=== PATIENT | female | born 2000 | race Two or more races ===

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

== ENCOUNTER 2022-02-07 15:53 | Emergency (ER) | payer BC ==
[~2022-02-07] VITALS: Ht 152.4 cm; Wt 75.3 kg
[2022-02-07 16:08] VITALS: BP 127/90
--- NOTE | 2022-02-07 16:30 | NUR ---
Called to room pt- NO response
--- NOTE | 2022-02-07 16:41 | NUR ---
called to room pt- NO response.
--- NOTE | 2022-02-07 16:45 | NUR ---
Called to room pt- NO response
== END 2022-02-07 19:00 | disposition left against medical advice (07) ==
LOC: ER 15:55
DX: Z53.21 Procedure and treatment not carried out due to patient leaving prior to being seen by health care provider (principal)

== ENCOUNTER 2022-02-07 17:06 | Emergency (ER) | payer BC ==
[~2022-02-07] VITALS: Ht 157.5 cm; Wt 45.4 kg
--- NOTE | 2022-02-07 17:20 | NUR ---
"was sent here from - Lower abdominal Pain. +". Placed comfortably in bed. urine specimen cup given to patient for urine specimen collection. Patient's vitals within normal limits.
--- NOTE | 2022-02-07 17:40 | NUR ---
seen by PA at bedside
--- NOTE | 2022-02-07 17:48 | NUR ---
Urine specimen sent to lab
--- NOTE | 2022-02-07 17:55 | NUR ---
gino pérez at bedside.
[2022-02-07 19:50] LABS: ALBUMIN 2.2 g/dL (3.4-5.0); BILIRUBIN,TOTAL 0.1 mg/dL (0.2-1.0); CALCIUM, SERUM 8.4 mg/dL (8.5-10.1); CREATININE 1.2 mg/dL (0.6-1.3); POTASSIUM 3.9 mmol/L (3.5-5.1)
[2022-02-07 19:59] LABS: BILIRUBIN,URINE NEGATIVE (NEGATIVE); COLOR,URINE YELLOW (YELLOW); LEUKOCYTE ESTERASE ,URINE NEGATIVE (NEGATIVE); NITRITE, URINE NEGATIVE (NEGATIVE); PROTEIN,URINE >=300 mg/dl (NEGATIVE); UGLUCOSE NEGATIVE (NEGATIVE); UROBILINOGEN,URINE 0.2 EU/dL (0.2)
[2022-02-07 20:14] LABS: BASOPHILS % (AUTO) 0.3 % (0.0-2.0); HEMATOCRIT 35 % (33-45); HEMOGLOBIN 11.6 g/dL (11.5-14.8); LYMPHOCYTES # (AUTO) 2.1 K/uL (0.8-4.8); LYMPHOCYTES % (AUTO) 23.8 % (20.0-44.0); MEAN CORPUSCULAR HGB CONC 33 g/dl (31.0-36.0); MEAN CORPUSCULAR VOLUME 86 fL (82-100); MONOCYTES # (AUTO) 0.5 K/uL (0.1-1.30); MONOCYTES % (AUTO) 5.4 % (2.0-12.0); NEUTROPHILS # (AUTO) 5.8 K/uL (1.8-8.9); NEUTROPHILS % (AUTO) 65.5 % (43.0-81.0); PLATELET COUNT (AUTO) 272 K/uL (150-450); RED BLOOD CELL COUNT(AUTO) 4.03 MIL/uL (4.0-5.2); WHITE BLOOD COUNT (AUTO) 8.8 K/uL (4.3-11.0)
[2022-02-07 20:28] LABS: TOTAL PROTEIN, SERUM 5.6 g/dL (6.4-8.2)
[2022-02-07 20:55] LABS: BACTERIA,URINE 2+ /HPF (None Seen); SQUAMOUS EPITHELIAL CELL,UR 21-50 /HPF (None Seen); WBC,URINE 0-2 /HPF (0-3)
[2022-02-07] MEDS: IV NS 0.9% 1,000 ML BAG IV ONE (21:15)
--- NOTE | 2022-02-07 22:16 | NUR ---
Patient discharged to home in stable condition. Written and verbal after care instructions given. Patient verbalizes understanding of instruction.
[2022-02-07 22:56] VITALS: BP 117/84
== END 2022-02-07 22:56 | disposition home or self-care (01) ==
LOC: ER 17:08
DX: O26.891 Other specified pregnancy related conditions, first trimester (principal); R10.31 Right lower quadrant pain; J45.909 Unspecified asthma, uncomplicated; Z87.42 Personal history of other diseases of the female genital tract; Z79.52 Long term (current) use of systemic steroids; Z79.899 Other long term (current) drug therapy; Z3A.01 Less than 8 weeks gestation of pregnancy
CPT/HCPCS: 36415; 76700; 76805; 80048; 80076; 81001; 83690; 84702; 85025; 85730; 86850; 87086; 99284; J7040

== ENCOUNTER 2022-09-16 21:27 | Emergency (ER) | payer BC ==
[~2022-09-16] VITALS: Ht 167.6 cm; Wt 74.8 kg
[2022-09-16] MEDS ORDERED: IPRATROPIUM NEB FS 0.5 MG/2.5 ML AMPUL.NEB ONE (21:31)
[2022-09-16] MEDS ORDERED: ALBUTEROL FS 2.5 MG/3 ML VIAL.NEB ONE ×2 (21:31→22:16)
--- NOTE | 2022-09-16 21:31 | NUR ---
BIBS C/O SOB SINCE AM UNRELIEVED BY INHALER. HX OF ASTHMA. PT A/OX3. TOLERATING R/A AT 97%. CONNECTED PT TO POX AND MONITOR SAFETY MEASURES IN PLACE.
--- NOTE | 2022-09-16 21:33 | NUR ---
RT AT BEDSIDE FOR BREATHING TX
[2022-09-16] MEDS ORDERED: predniSONE 20 MG TABLET ONE (21:34)
[2022-09-16] MEDS ORDERED: ALBUTEROL FS 2.5 MG/3 ML VIAL.NEB NEB ONE ×2 (22:00→22:30)
[2022-09-16] MEDS ORDERED: predniSONE 20 MG TABLET PO ONE (22:00)
[2022-09-16] MEDS ORDERED: IPRATROPIUM NEB FS 0.5 MG/2.5 ML AMPUL.NEB NEB ONE (22:00)
[2022-09-16] MEDS ORDERED: PRED20TA PO (22:43)
[2022-09-16] MEDS ORDERED: ALBU18HF2 INH (23:18)
[2022-09-16] MEDS ORDERED: ALBU2.5V13 NEB (23:18)
[2022-09-16 23:44] VITALS: BP 145/98
--- NOTE | 2022-09-16 23:44 | NUR ---
Patient discharged to home in stable condition. Written and verbal after care instructions given. Patient verbalizes understanding of instruction.
== END 2022-09-16 23:45 | disposition home or self-care (01) ==
LOC: ER 21:30
DX: J45.901 Unspecified asthma with (acute) exacerbation (principal); J45.909 Unspecified asthma, uncomplicated; Z88.8 Allergy status to other drugs, medicaments and biological substances; Z79.899 Other long term (current) drug therapy
CPT/HCPCS: 99285; 93005; 94644; 94645; J7512

== ENCOUNTER 2023-08-29 18:22 | Emergency (ER) | payer BC ==
[~2023-08-29] VITALS: Ht 152.4 cm; Wt 75.7 kg
[~2023-08-29 18:22] MED LIST changes: +ALBU2.5V13 NEB; +PRED20TA PO
[2023-08-29 19:12] LABS: CALCIUM, SERUM 8.6 mg/dL (8.5-10.1); CREATININE 3.2 mg/dL (0.6-1.3); POTASSIUM 4.2 mmol/L (3.5-5.1)
[2023-08-29 20:30] VITALS: BP 125/75; TEMP 98.7; O2SAT 100
== END 2023-08-29 20:13 | disposition home or self-care (01) ==
LOC: ER 18:22
DX: N28.9 Disorder of kidney and ureter, unspecified (principal); N04.9 Nephrotic syndrome with unspecified morphologic changes; J45.909 Unspecified asthma, uncomplicated; Z88.8 Allergy status to other drugs, medicaments and biological substances; Z79.51 Long term (current) use of inhaled steroids; Z79.899 Other long term (current) drug therapy
CPT/HCPCS: 36415; 80048-TC